=== PATIENT | female | born 1975 | race Caucasian/White ===

== ENCOUNTER 2019-01-19 15:31 | Emergency (ER) | payer MEDICAID, OTHER ==
[2019-01-19] MEDS ORDERED: Lidocaine 1% 10 ML MDV ONE (15:45)
--- NOTE | 2019-01-19 16:04 | EDM.PDOC ---
ED HPI GENERAL MEDICAL PROBLEM - General Chief Complaint: Laceration Stated Complaint: LACERATION TO LEFT HAND Time Seen by Provider: 01/19/19 15:50 Source of Information: Reports: Patient, Family, RN History Limitations: Reports: No Limitations - History of Present Illness INITIAL COMMENTS - FREE TEXT/NARRATIVE: 43 yr female presents with laceration of 2nd finger of left hand. 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 Unsure of last tetanus vaccine. - Related Data Allergies Allergy/AdvReac Type Severity Reaction Status Date / Time No Known Allergies Allergy Verified 01/19/19 16:28 Review of Systems - Review of Systems Review Of Systems: See Below Constitutional: Reports: No Symptoms Respiratory: Reports: No Symptoms Cardiovascular: Reports: No Symptoms Musculoskeletal: Reports: Hand Pain Skin: Reports: Wound (laceration to pointer finger of left hand.) Neurological: Reports: No Symptoms ED EXAM, GENERAL - Physical Exam Exam: See Below Exam Limited By: No Limitations General Appearance: Alert, No Apparent Distress Ears: Hearing Grossly Normal Throat/Mouth: Normal Voice, No Airway Compromise Head: Atraumatic, Normocephalic Respiratory/Chest: No Respiratory Distress Extremities: Normal Range of Motion, Normal Capillary Refill, Other (Moves fingers freely and good finger to thumb movement of left fingers.) Neurological: Alert, Oriented, Normal Cognition Psychiatric: Normal Affect, Normal Mood Skin Exam: Warm, Normal Color, Wound/Incision (2 cm laceration to distal tip of 2nd finger of left hand.) ED TRAUMA EXTREMITY PROCEDURES - Laceration/Wound Repair Left Digit - 2nd (Index) Lac/Wound Length In cm: 2 Appearance: Subcutaneous, Clean Distal NVT: Neuro & Vascular Intact, No Tendon Injury Anesthetic Type: Local Local Anesthesia - Lidocaine (Xylocaine): 1% Plain Local Anesthetic Volume: 4cc Skin Prep: Chlorhexidine (Hibiciens), Providone-Iodine (Betadine), Saline, Sterile Drape Exploration/Debridement/Repair: Wound Explored, No Foreign Material Found Closed With: Sutures Suture Size: 4-0 # of Sutures: 4 Suture Type: Nylon, Simple Course - Orders/Labs/Meds Orders: Active Orders 24 hr Category Date Time Status Vaccines to be Administered [RC] PER UNIT ROUTINE Care 01/19/19 16:28 Active Fingers Second Digit Lt F1 [CR] Stat Exams 01/19/19 15:51 Taken Meds: Medications Discontinued Medications Generic Name Dose Route Start Last Admin Trade Name Odilia PRN Reason Stop Dose Admin Diphtheria/Tetanus/Acell Pertussis 0.5 ml 01/19/19 16:28 01/19/19 16:29 Boostrix IM 01/19/19 16:29 0.5 ml .ONCE ONE Administration Departure - Departure Time of Disposition: 16:49 Disposition: Home, Self-Care 01 Condition: Good Clinical Impression: Laceration - Discharge Information *PRESCRIPTION DRUG MONITORING PROGRAM REVIEWED*: Not Applicable *COPY OF PRESCRIPTION DRUG MONITORING REPORT IN PATIENT PAOLA: Not Applicable Instructions: Laceration Care, Adult, Laceration Care, Adult, [id number] Referrals: Aleksandra Recinos NP [Primary Care Provider] - Forms: ED Department Discharge Additional Instructions: Keep wound clean and dry for 48 hours. Keep L finger elevated for 24 hours. Return in 7-10 days to have sutures removed. Take Motrin or Tylenol as needed for pain - My Orders Last 24 Hours: My Active Orders 01/19/19 15:51 Fingers Second Digit Lt F1 [CR] Stat 01/19/19 16:28 Vaccines to be Administered [RC] PER UNIT ROUTINE - Assessment/Plan Last 24 Hours: My Active Orders 01/19/19 15:51 Fingers Second Digit Lt F1 [CR] Stat 01/19/19 16:28 Vaccines to be Administered [RC] PER UNIT ROUTINE Plan: Keep finger clean and dry. Elevate finger above level of heart. Keep dressing on clean and dry for 24-48 hour, then apply small amount of antibiotic oint to area daily. Off of work for 72 hour, then may return to work with no use of finger for 1 week. RTC in 7-10 days for suture removal. Monitor for any signs of infection. RTC sooner if any signs of infection noted. May use Tylenol or Ibuprofen as needed for relief of pain. Discharge to family care.
[2019-01-19] MEDS: Diphtheria,Pertussis(Acell),Tetanus Vaccine 0.5 ML SDV inactive IM ONE (16:29)
--- NOTE | 2019-01-20 07:24 | CR ---
DATE OF SERVICE: 01/19/19 CLINICAL DATA: Laceration. LEFT 2ND DIGIT: There is soft tissue swelling and soft tissue emphysema adjacent to the distal phalanx consistent with the patient's history of laceration. There is a faint lucency through the tuft of the distal phalanx on one of the views, suspicious for a nondisplaced fracture. The exam is otherwise negative. [id number] MTDD
== END 2019-01-19 16:49 | disposition home or self-care (01) ==
LOC: LB.ED 15:31
DX: S61.211A Laceration without foreign body of left index finger without damage to nail, initial encounter (principal); Z23 Encounter for immunization; Y99.0 Civilian activity done for income or pay; W26.0XXA Contact with knife, initial encounter
CPT/HCPCS: 12001; 73140-F1; 90471; 90715; 99282-25; J2001

== ENCOUNTER 2019-03-11 17:25 | Emergency (ER) | payer BC, MEDICAID ==
[2019-03-11] MEDS ORDERED: traMADol 50 MG Tab ONE (17:45)
--- NOTE | 2019-03-12 00:08 | ER ---
REASON FOR EMERGENCY ROOM VISIT: Left knee injury. HISTORY: This 43-year-old woman has been followed by Dr. Clark, orthopedist in [place] for left knee problems. This afternoon while she was walking down some stairs, she slipped on the last step and twisted her knee and fell to the ground. She states that her lower leg went laterally in a very unnatural direction and experienced immediate pain followed by some swelling in her left knee area. She was brought to the emergency room by a friend. She has had left knee arthroscopic surgery in the past in 2003 in [place]. She states that she has been told by Dr. Clark in [place] that she will eventually need to have the left knee replacement. She has been getting physical therapy up until recently. It is noteworthy that she had an MRI in December, and I was able to access those results which did not show any real remarkable findings apart from some degenerative changes. PAST MEDICAL HISTORY: 1. Arthroscopic surgery as described above. 2. 4, para 4. MEDICATIONS: Include Topamax (mood stabilizer) and ibuprofen as needed. ALLERGIES: NONE TO MEDICATIONS. REVIEW OF SYSTEMS: All pertinent positives and negatives as listed in the HPI. PHYSICAL EXAMINATION: She is sitting in a chair, she came in with it, with her knee extended and resting on a stool. She has a gel-pad over her knee, but this has already warmed to room temperature. She is in no acute distress. Examination of her left knee reveals that she already has an effusion. Passive range of motion is painful for her. She does have tenderness along the joint itself to palpation medially and laterally. The effusion is both suprapatellar and infrapatellar in nature. On passive range of motion, I was not able to detect any bony crepitus. Drawer sign is negative. She does have some medial and lateral laxity demonstrable. I did not force the issue any more than that. Distally, her pulses are good, and she has normal sensation. IMAGING: X-rays demonstrate some degenerative changes but no fracture was identified. IMPRESSION: I suspect significant knee sprain, possibly medial collateral ligament tear plus or minus meniscus injury. PLAN: She was instructed to keep icing the knee, and we placed her in a knee splint. She was fitted for crutches and told she should have absolutely no weightbearing on it. She does have an appointment to see Dr. Clark on Thursday next week, fortunately. I recommended that she give her office a call and see if she can get in earlier. She assures me she will be able to do this. All questions were answered. She understands and agrees with this plan. NINA /[id number] ALFREDO
--- NOTE | 2019-03-14 10:15 | CR ---
DATE OF SERVICE: 03/11/19 CLINICAL DATA: knee injury LEFT KNEE: There are osteoarthritic changes with narrowing of the medial and lateral compartment joint spaces. There is a moderate size joint effusion. No acute abnormalities. No lytic or blastic bone lesions. [id number] MTDD
== END 2019-03-11 18:59 | disposition home or self-care (01) ==
LOC: LB.ED 17:25
DX: S83.92XA Sprain of unspecified site of left knee, initial encounter (principal); W10.9XXA Fall (on) (from) unspecified stairs and steps, initial encounter
CPT/HCPCS: 73560; 99283; A9270